=== PATIENT | female | born 1945 | race Caucasian/White ===

== ENCOUNTER → 2024-06-21 | Day surgery (SDC) | payer OTHER ==
[2024-06-18 16:51] LABS: BASOPHILS % 0.4 % (0.0-1.0); EOSINOPHILS # (AUTO) 0.2 (0.0-0.4); EOSINOPHILS % 2.5 % (0.0-6.0); HEMATOCRIT 34.6 % (34.2-44.1); HEMOGLOBIN 11.2 g/dL (12.0-16.0); LYMPHOCYTES # (AUTO) 0.8 (1.0-3.2); LYMPHOCYTES % 11.4 % (18.0-39.1); MEAN CORPUSCULAR HEMOGLOBIN 31.1 pg (28-32); MEAN CORPUSCULAR HGB CONC 32.4 g/dL (31-35); MEAN CORPUSCULAR VOLUME 96.1 fL (81-99); MONOCYTES # (AUTO) 0.6 (0.2-0.8); MONOCYTES % 8.4 % (4.4-11.3); NEUTROPHILS # (AUTO) 5.1 (2.1-6.9); PLATELET COUNT 135 x10e3/uL (140-360); RED CELL DISTRIBUTION WIDTH 12.9 % (11.7-14.4); WHITE BLOOD COUNT 6.68 x10e3/uL (4.8-10.8)
[2024-06-18 17:03] LABS: ANION GAP 15.8 mmol/L (8-16); CALCIUM 10.2 mg/dL (8.4-10.2); CREATININE, SERUM 1.09 mg/dL (0.57-1.11); POTASSIUM 3.8 mmol/L (3.5-5.1)
[~2024-06-21] MED LIST: AMLODIPINE BESY10 MG PO; ARIMIDEX1 MG PO; BALANCED SALT SOLN (OPTH) 15 ML BTL IO ONE; BUPIVACAINE HC 0.75% PF 10ML VIAL INJ ONE; CYCLOPENTOLATE HCL 2% OPTH SOLN 2 ML BTL OP ONE; EPINEPHRINE HCL 1:1000 1ML 1 MG/ML AMP ONE; FUROSEMIDE40 MG PO; GABAPENTIN300 MG PO; LACTATED RINGER'S 1,000 ML ONE; LEVOTHYROXINE50 MCG PO; LIDOCAINE 2% /EPINEPHRINE 20 ML SDV INJ ONE; LIDOCAINE HCL-PF 4% 40 MG/1 ML 5ML AMP ONE; LIPITOR10 MG PO; LOSARTAN-HCTZ1 EAC1 PO; METOPROLOL SUCC50 MG PO; PHENYLEPHRINE HCL 2 ML DROPS ONE; POVIDONE IODINE 5% (OPTH) 30 ML BTL ONE; ROPINIROLE HCL1 MG PO
[2024-06-21 12:53] VITALS: TEMP 97.2
[2024-06-21 13:10] VITALS: BP 153/71; PULSE 56; RESP 18; O2SAT 97
== END | disposition home or self-care (01) ==
LOC: OR 09:54
PROVIDERS: ATTEND Ophthalmology
DX: H25.12 Age-related nuclear cataract, left eye (principal); I10 Essential (primary) hypertension; I25.10 Atherosclerotic heart disease of native coronary artery without angina pectoris; I25.2 Old myocardial infarction; E78.5 Hyperlipidemia, unspecified; M19.90 Unspecified osteoarthritis, unspecified site; Z88.0 Allergy status to penicillin; Z01.810 Encounter for preprocedural cardiovascular examination; Z01.812 Encounter for preprocedural laboratory examination; Z79.899 Other long term (current) drug therapy
CPT/HCPCS: 36415; 66984; 80048; 85025; 93005; J0171; J2004; J7121; V2632

== ENCOUNTER → 2024-09-13 | Day surgery (SDC) | payer MEDICARE, OTHER ==
[2024-09-10 16:16] LABS: BASOPHILS % 0.5 % (0.0-1.0); EOSINOPHILS # (AUTO) 0.1 (0.0-0.4); EOSINOPHILS % 2.1 % (0.0-6.0); HEMATOCRIT 40.7 % (34.2-44.1); HEMOGLOBIN 13.1 g/dL (12.0-16.0); LYMPHOCYTES # (AUTO) 0.6 (1.0-3.2); LYMPHOCYTES % 13.4 % (18.0-39.1); MEAN CORPUSCULAR HEMOGLOBIN 32.1 pg (28-32); MEAN CORPUSCULAR HGB CONC 32.2 g/dL (31-35); MEAN CORPUSCULAR VOLUME 99.8 fL (81-99); MONOCYTES # (AUTO) 0.4 (0.2-0.8); MONOCYTES % 8.6 % (4.4-11.3); NEUTROPHILS # (AUTO) 3.2 (2.1-6.9); NEUTROPHILS % 74.9 % (38.7-80.0); PLATELET COUNT 111 x10e3/uL (140-360); RED BLOOD COUNT 4.08 x10e6/uL (3.6-5.1); RED CELL DISTRIBUTION WIDTH 12.4 % (11.7-14.4); WHITE BLOOD COUNT 4.32 x10e3/uL (4.8-10.8)
[2024-09-10 16:47] LABS: ANION GAP 16.2 mmol/L (8-16); CALCIUM 10.2 mg/dL (8.4-10.2); CREATININE, SERUM 0.98 mg/dL (0.57-1.11); POTASSIUM 4.2 mmol/L (3.5-5.1)
[~2024-09-13] MED LIST changes: -BALANCED SALT SOLN (OPTH) 15 ML BTL IO ONE; -BUPIVACAINE HC 0.75% PF 10ML VIAL INJ ONE; -CYCLOPENTOLATE HCL 2% OPTH SOLN 2 ML BTL OP ONE; -EPINEPHRINE HCL 1:1000 1ML 1 MG/ML AMP ONE; +FENTANYL CITRATE/PF 100MCG/2 ML INJ ONE; +LABETALOL HCL 20 ML ONE; -LACTATED RINGER'S 1,000 ML ONE; -LIDOCAINE 2% /EPINEPHRINE 20 ML SDV INJ ONE; +LIDOCAINE HCL 2% LOCAL INJ 5 ML SDV VIAL INJ ONE; -LIDOCAINE HCL-PF 4% 40 MG/1 ML 5ML AMP ONE; +MAGNESIUM SULFATE 2GM/50ML IV ONE; +MIDAZOLAM HCL 2 MG/2 ML VIAL ONE; -PHENYLEPHRINE HCL 2 ML DROPS ONE; -POVIDONE IODINE 5% (OPTH) 30 ML BTL ONE; +PROPOFOL IV EMULSION 10 MG/ML 20 ML VIAL ONE
[2024-09-13] MEDS: LACTATED RINGER'S 1,000 ML ONE (07:45)
[2024-09-13] MEDS: PHENYLEPHRINE HCL 2 ML DROPS ONE (07:45)
[2024-09-13] MEDS: GATIFLOXACIN(OPTH) 5 ML LIQD ONE (07:46)
[2024-09-13] MEDS: CYCLOPENTOLATE HCL 2% OPTH SOLN 2 ML BTL OP ONE (07:46)
[2024-09-13 10:28] VITALS: TEMP 97
[2024-09-13 10:55] VITALS: BP 170/85; PULSE 63; RESP 13; O2SAT 97
== END | disposition home or self-care (01) ==
LOC: OR 06:52
PROVIDERS: ATTEND Ophthalmology
DX: H25.11 Age-related nuclear cataract, right eye (principal); I10 Essential (primary) hypertension; M19.90 Unspecified osteoarthritis, unspecified site; E78.5 Hyperlipidemia, unspecified; I25.10 Atherosclerotic heart disease of native coronary artery without angina pectoris; I25.2 Old myocardial infarction; G89.29 Other chronic pain; E03.9 Hypothyroidism, unspecified; Z88.0 Allergy status to penicillin; Z01.810 Encounter for preprocedural cardiovascular examination; Z01.812 Encounter for preprocedural laboratory examination; Z79.899 Other long term (current) drug therapy; Z85.3 Personal history of malignant neoplasm of breast; Z92.21 Personal history of antineoplastic chemotherapy; Z92.3 Personal history of irradiation
CPT/HCPCS: 36415; 66984; 80048; 85025; 93005; J2003; J2250; J2704; J3010; J3475; J3490; J7121; V2632

== ENCOUNTER 2025-04-02 06:12 | Observation (INO) | payer MEDICARE ==
[~2025-04-02 06:12] MED LIST changes: -FENTANYL CITRATE/PF 100MCG/2 ML INJ ONE; -LABETALOL HCL 20 ML ONE; -LIDOCAINE HCL 2% LOCAL INJ 5 ML SDV VIAL INJ ONE; -MAGNESIUM SULFATE 2GM/50ML IV ONE; -MIDAZOLAM HCL 2 MG/2 ML VIAL ONE; -PROPOFOL IV EMULSION 10 MG/ML 20 ML VIAL ONE
[2025-04-02] MEDS: CEFAZOLIN SODIUM 2 GM ONE (07:25)
[2025-04-02] MEDS: GABAPENTIN 300 MG CAP ONE (07:26)
[2025-04-02] MEDS: DEXAMETHASONE SOD PHOS 10 MG/1 ML VIAL ONE (07:26)
[2025-04-02] MEDS: CELECOXIB 200 MG CAP ONE (07:27)
[2025-04-02] MEDS: LACTATED RINGER'S 1,000 ML ONE (07:27)
[2025-04-02] MEDS ORDERED: ROPIVACAINE/EPI/CLONIDINE/KET 50 ML SYRINGE INJ ONE ×2 (08:00)
[2025-04-02] MEDS ORDERED: PROPOFOL IV EMULSION 10 MG/ML 20 ML VIAL ONE (09:04)
[2025-04-02] MEDS ORDERED: SEVOFLURANE INHAL SOLN 250 ML PEN BTL ONE (09:04)
[2025-04-02] MEDS ORDERED: FENTANYL CITRATE/PF 100MCG/2 ML INJ ONE (09:04)
[2025-04-02] MEDS ORDERED: LIDOCAINE HCL 2% LOCAL INJ 5 ML SDV VIAL INJ ONE (09:06)
[2025-04-02] MEDS ORDERED: FAMOTIDINE 20 MG/2 ML VIAL IV ONE (09:49)
[2025-04-02] MEDS ORDERED: EPHEDRINE SULFATE INJ 50 MG/ML VIAL ONE (09:53)
[2025-04-02] MEDS ORDERED: ONDANSETRON HCL INJ 2MG/ML 2ML 2 MG/ML VIAL ONE (09:56)
[2025-04-02] MEDS ORDERED: ACETAMINOPHEN 1000 MG/100 ML 100 ML IV ONE (10:00)
[2025-04-02] MEDS ORDERED: ACETAMINOPHEN 650 MG SUPP PR PRN (11:15)
[2025-04-02] MEDS ORDERED: HYDROCODONE/APAP 7.5MG-325MG 1 EA TAB PO PRN (11:15)
[2025-04-02] MEDS ORDERED: DOCUSATE SODIUM 100 MG CAP PO PRN (11:15)
[2025-04-02] MEDS ORDERED: DIPHENHYDRAMINE HCL INJ 50 MG/ML VIAL IV PRN (11:15)
[2025-04-02] MEDS ORDERED: ONDANSETRON HCL INJ 2MG/ML 2ML 2 MG/ML VIAL IV PRN (11:15)
[2025-04-02 13:26] VITALS: BP 152/58; PULSE 61; RESP 17; TEMP 97; O2SAT 96
[2025-04-02] MEDS: SODIUM CHLORIDE 0.9% 1000ML 1,000 ML IV SCH (13:39)
[2025-04-02 15:54] VITALS: PULSE 74; RESP 20; O2SAT 96
[2025-04-02 16:19] VITALS: BP 158/66; PULSE 65; RESP 18; TEMP 98.1; O2SAT 99
[2025-04-02] MEDS: CELECOXIB 100 MG CAP PO SCH (17:03)
[2025-04-02 20:00] VITALS: BP 138/66; PULSE 59; RESP 16; TEMP 97.7; O2SAT 97
[2025-04-02 20:05] VITALS: PULSE 60; RESP 16; O2SAT 95
[2025-04-02 21:00] VITALS: BP 138/66; PULSE 60; RESP 16; TEMP 97.7; O2SAT 95
[2025-04-02] MEDS: HYDROCODONE/APAP 5MG-325MG TAB PO PRN (23:53)
[2025-04-03 08:20] VITALS: BP 142/62; PULSE 61; RESP 18; TEMP 97.6; O2SAT 97
[2025-04-03 08:48] VITALS: BP 142/62; PULSE 61; RESP 18; TEMP 97.6; O2SAT 97
[2025-04-03] MEDS ORDERED: ACETAMINOPHEN 1000 MG/100 ML IV PRN (11:15)
[2025-04-03 11:20] VITALS: PULSE 70; RESP 18; O2SAT 96
[2025-04-03 11:46] VITALS: BP 170/68; PULSE 68; RESP 17; TEMP 98.7; O2SAT 99
== END 2025-04-03 13:49 | disposition home or self-care (01) ==
LOC: OR 06:12 → PACU V 11:04 → MED/SURG 13:19
PROVIDERS: ADMIT Specialist; ATTEND Specialist
DX: M17.11 Unilateral primary osteoarthritis, right knee (principal); I10 Essential (primary) hypertension; Z85.3 Personal history of malignant neoplasm of breast; Z87.891 Personal history of nicotine dependence; Z88.0 Allergy status to penicillin; Z01.810 Encounter for preprocedural cardiovascular examination
CPT/HCPCS: 27447; 36415; 71046; 73560; 85014; 85018; 86850; 86900; 93005; 94799 ×2; 97110; 97116 ×2; 97161; 97530 ×2; C1713 ×2; C1776 ×3; G0378 ×2; J0131; J0690 ×2; J1100; J1308; J2003; J2405; J2704; J3010; J7030 ×2; J7121